=== PATIENT | male | born 1950 | race Caucasian/White ===

== ENCOUNTER 2019-02-17 11:27 | Emergency (ER) | payer BC, MEDICARE ==
[2019-02-17 11:40] VITALS: RESP 18; TEMP 98.2
--- NOTE | 2019-02-17 11:42 | ED ---
General Adult HPI - General Stated complaint: Hypoglycemia Time Seen by Provider: 02/17/19 11:30 Source: patient, EMS, RN notes reviewed, old records reviewed Mode of arrival: EMS Limitations: no limitations - History of Present Illness Initial comments: This is a 68-year-old male who presents emergency Department with a past medical history significant for diabetes and hypertension. Patient states that he did not eat dinner last night and normal in the morning he takes his blood sugar but he did not so he doesn't know if he was low but he feels as though he was and he gave himself insulin. Set of going to eat directly he started taking a shower shaving and his eventually found him on the ground just mumbling. She was given an amp of D50 and he came around quite quickly according to EMS and patient currently feels at his baseline. Patient denies any recent fever chills or cough per patient denies any chest pain or difficulty breathing. Patient denies any abdominal pain patient denies any nausea vomiting diarrhea. Patient states he is just hungry at this time. - Related Data Home Medications Medication Instructions Recorded Confirmed Aspirin EC [Ecotrin Low Dose] 81 mg PO DAILY 02/17/19 02/17/19 Atorvastatin [Lipitor] 80 mg PO HS 02/17/19 02/17/19 Carvedilol [Coreg] 6.25 mg PO BID 02/17/19 02/17/19 Clopidogrel [Plavix] 75 mg PO DAILY 02/17/19 02/17/19 Furosemide [Lasix] 20 mg PO DAILY 02/17/19 02/17/19 Glucosamine/Chondr [place] A Sod [Osteo 1 tab PO BID 02/17/19 02/17/19 Bi-Flex Caplet] Insulin Glargine,Hum.rec.anlog 6 unit SQ HS 02/17/19 02/17/19 [Lantus Solostar] Insulin Glargine,Hum.rec.anlog 44 unit SQ DAILY 02/17/19 02/17/19 [Lantus Solostar] Isosorbide Mononitrate ER [Imdur] 30 mg PO DAILY 02/17/19 02/17/19 Lisinopril 40 mg PO DAILY 02/17/19 02/17/19 [place]-3 Fatty Acids/Fish Oil [Fish 1 cap PO DAILY 02/17/19 02/17/19 Oil 1,000 mg Softgel] Pantoprazole Sodium [Protonix] 40 mg PO DAILY 02/17/19 02/17/19 metFORMIN HCL 1,000 mg PO BID 02/17/19 02/17/19 Allergies Allergy/AdvReac Type Severity Reaction Status Date / Time Sulfa (Sulfonamide AdvReac LOW SUGAR Verified 02/17/19 12:25 Antibiotics) Review of Systems ROS Statement: Those systems with pertinent positive or pertinent negative responses have been documented in the HPI. ROS Other: All systems not noted in ROS Statement are negative. Past Medical History Past Medical History: Diabetes Mellitus, Hypertension History of Any Multi-Drug Resistant Organisms: None Reported Past Surgical History: Heart Catheterization With Stent Additional Past Surgical History / Comment(s): X3 STENTS, STEMI 2007 Smoking Status: Former smoker Past Alcohol Use History: Occasional Past Drug Use History: None Reported General Exam - General Exam Comments Initial Comments: GENERAL: Patient is well-developed and well-nourished. Patient is nontoxic and well- hydrated and is in no acute distress. ENT: Neck is soft and supple. No significant lymphadenopathy is noted. Oropharynx is clear. Moist mucous membranes. Neck has full range of motion without eliciting any pain. EYES: The sclera were anicteric and conjunctiva were pink and moist. Extraocular movements were intact and pupils were equal round and reactive to light. Eyelids were unremarkable. PULMONARY: Unlabored respirations. Good breath sounds bilaterally. No audible rales rh onchi or wheezing was noted. CARDIOVASCULAR: There is a regular rate and rhythm without any murmurs gallops or rubs. ABDOMEN: Soft and nontender with normal bowel sounds. No palpable organomegaly was noted. There is no palpable pulsatile mass. SKIN: Skin is clear with no lesions or rashes and otherwise unremarkable. NEUROLOGIC: Patient is alert and oriented x3. Cranial nerves II through XII are grossly intact. Motor and sensory are also intact. Normal speech, volume and content. Symmetrical smile. MUSCULOSKELETAL: Normal extremities with adequate strength and full range of motion. No lower extremity swelling or edema. No calf tenderness. LYMPHATICS: No significant lymphadenopathy is noted PSYCHIATRIC: Normal psychiatric evaluation. Limitations: no limitations Course Vital Signs 02/17/19 11:29 Temperature 98.2 F Pulse Rate 71 Respiratory 18 Rate Blood Pressure 153/103 O2 Sat by Pulse 98 Oximetry Medical Decision Making - Medical Decision Making EKG shows a paced rhythm at 66 bpm MA interval 242 QRS is 156 QT intervals 462 QTC is 484 per patient's EKG showselevation or depression or T wave abnormalities are noted - Lab Data Result diagrams: 02/17/19 11:48 02/17/19 12:15 Lab Results 02/17/19 02/17/19 02/17/19 Range/Units 11:43 11:48 12:15 WBC 13.5 H (3.8-10.6) k/uL RBC 4.54 (4.30-5.90) m/uL Hgb 14.5 (13.0-17.5) gm/dL Hct 42.3 (39.0-53.0) % MCV 93.3 (80.0-100.0) fL MCH 31.9 (25.0-35.0) pg MCHC 34.2 (31.0-37.0) g/dL RDW 13.6 (11.5-15.5) % Plt Count 184 (150-450) k/uL Neutrophils % 88 % Lymphocytes % 6 % Monocytes % 4 % Eosinophils % 0 % Basophils % 0 % Neutrophils # 11.9 H (1.3-7.7) k/uL Lymphocytes # 0.8 L (1.0-4.8) k/uL Monocytes # 0.5 (0-1.0) k/uL Eosinophils # 0.1 (0-0.7) k/uL Basophils # 0.1 (0-0.2) k/uL Sodium 143 (137-145) mmol/L Chloride 112 H (98-107) mmol/L Carbon Dioxide 14 L (22-30) mmol/L Anion Gap 17 mmol/L BUN 24 H (9-20) mg/dL Creatinine 1.55 H (0.66-1.25) mg/dL Est GFR (CKD-EPI)AfAm 53 (>60 ml/min/1.73 sqM) Est GFR (CKD-EPI)NonAf 46 (>60 ml/min/1.73 sqM) Glucose 113 H (74-99) mg/dL POC Glucose (mg/dL) 111 H (75-99) mg/dL POC Glu [employer] Maintenance Supervisor ID [place] Calcium 9.5 (8.4-10.2) mg/dL Total Bilirubin 1.7 H (0.2-1.3) mg/dL AST 51 (17-59) U/L ALT 27 (4-49) U/L Alkaline Phosphatase 123 (38-126) U/L Total Protein 8.8 H (6.3-8.2) g/dL Albumin 4.9 (3.5-5.0) g/dL Disposition Clinical Impression: Hypoglycemia Disposition: HOME SELF-CARE Condition: Good Instructions (If sedation given, give patient instructions): Hypoglycemia in a Person with Diabetes (ED) Is patient prescribed a controlled substance at d/c from ED?: No Referrals: Kwasi Donnelly DO [Primary Care Provider] - 1-2 days Time of Disposition: 12:39
[2019-02-17 11:45] LABS: Glucose,Whole Blood 111 mg/dL (75-99)
[2019-02-17 12:01] LABS: Basophils # (A) 0.1 k/uL (0-0.2); Basophils % (A) 0 %; Eosinophils # (A) 0.1 k/uL (0-0.7); Eosinophils % (A) 0 %; HCT 42.3 % (39.0-53.0); HGB 14.5 gm/dL (13.0-17.5); Lymphocytes # (A) 0.8 k/uL (1.0-4.8); Lymphocytes % (A) 6 %; MCH 31.9 pg (25.0-35.0); MCHC 34.2 g/dL (31.0-37.0); MCV 93.3 fL (80.0-100.0); Mean Platelet Volume 9.6; Monocytes # (A) 0.5 k/uL (0-1.0); Monocytes % (A) 4 %; Neutrophils # (A) 11.9 k/uL (1.3-7.7); Neutrophils % (A) 88 %; Platelet Count 184 k/uL (150-450); RBC 4.54 m/uL (4.30-5.90); RDW 13.6 % (11.5-15.5); WBC 13.5 k/uL (3.8-10.6)
[2019-02-17 12:16] LABS: Albumin 4.9 g/dL (3.5-5.0); Calcium 9.5 mg/dL (8.4-10.2); Total Bilirubin 1.7 mg/dL (0.2-1.3); Total Protein 8.8 g/dL (6.3-8.2)
[2019-02-17 13:03] VITALS: BP 147/89; PULSE 79
[2019-02-17 13:18] LABS: Glucose,Whole Blood 180 mg/dL (75-99)
== END 2019-02-17 13:05 | disposition home or self-care (01) ==
LOC: EC 11:27
DX: E11.649 Type 2 diabetes mellitus with hypoglycemia without coma (principal); I10 Essential (primary) hypertension; Z87.891 Personal history of nicotine dependence; Z88.2 Allergy status to sulfonamides; Z79.02 Long term (current) use of antithrombotics/antiplatelets; Z79.4 Long term (current) use of insulin; Z79.82 Long term (current) use of aspirin; Z79.899 Other long term (current) drug therapy; Z95.5 Presence of coronary angioplasty implant and graft
CPT/HCPCS: 36415; 80053; 85025; 93005; 99285

== ENCOUNTER → 2020-04-18 | Outpatient (CLI) | payer MEDICARE ==
--- NOTE | 2020-04-18 10:06 | US ---
EXAMINATION TYPE: US kidneys/renal and bladder DATE OF EXAM: 04/18/2020 COMPARISON: NONE CLINICAL HISTORY: N18.30 Chronic kidney disease E11.2 type 2 diabetes. EXAM MEASUREMENTS: Right Kidney: 11.5 x 5.4 x 5.0 cm Left Kidney: 11.8 x 5.1 x 4.8 cm Post Void Residual Volume: 13.8 mL Right Kidney: No hydronephrosis or masses seen. Decreased renal cortex. Left Kidney: No hydronephrosis or masses seen Decreased renal cortex. Bladder: wnl Bilateral Jets seen: Yes Normal Post Void Residual: Yes Increased cortical echogenicity bilaterally on today's study. 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 No hydronephrosis. Bladder is satisfactorily distended. Bilateral distal u reter jets seen. Small amount of residual urine after voiding. IMPRESSION: No hydronephrosis noted bilaterally.
== END ==
LOC: RADUSWWP 09:00
PROVIDERS: ATTEND Family Medicine
DX: N18.30 Chronic kidney disease, stage 3 unspecified (principal); E11.22 Type 2 diabetes mellitus with diabetic chronic kidney disease
CPT/HCPCS: 76770